=== PATIENT | female | born 1945 | race African-American/Black ===

== ENCOUNTER 2023-01-08 19:17 | Emergency (ER) | payer MEDICARE, MEDICAID ==
[~2023-01-08] VITALS: Ht 160 cm; Wt 112.0 kg
[~2023-01-08 19:17] MED LIST: CELEBREX200 MG OR; CEPHALEXIN500 MG OR; LORTAB5 OR; NO MEDS; ULTRAM50 M1 PO
[2023-01-08 19:38] VITALS: BP 143/64
[2023-01-08 20:09] LABS: BASO% 0.2 % (0-3); EOS% 0.1 % (0-8); HEMATOCRIT 41.8 % (37.0-47.0); HEMOGLOBIN 13.7 g/dl (12.0-16.0); IMMATURE GRANULOCYTES 0.3 % (0.0-5.0); LYMPH% 21.9 % (15-41); MEAN CELL VOLUME 91.1 fL CALC (80.0-100.0); MEAN CORPUSCULAR HGB 29.8 pG CALC (26.0-32.0); MEAN CORPUSCULAR HGB CONC 32.8 g/dL CAL (32.0-36.0); MONO% 12.4 % (2-13); NEUT# 6.91 thou/uL (2.00-7.15); NEUT% 65.1 % (42-76); RED BLOOD COUNT 4.59 mill/uL (4.20-5.60); RED CELL DISTRI WIDTH 12.8 % (11.5-15.5)
[2023-01-08 20:29] LABS: ALBUMIN 4.1 g/dL (3.2-5.0); CREATININE 1.2 mg/dL (0.5-1.0); POTASSIUM 3.7 mmol/l (3.5-5.1); TOTAL PROTEIN 7.7 g/dL (6.3-8.2)
[2023-01-08 20:32] LABS: BILIRUBIN, TOTAL 1.2 mg/dL (0.02-1.3)
[2023-01-08 22:44] LABS: URINE BILIRUBIN - DIPSTICK Negative (NEGATIVE); URINE BLOOD DIPSTICK Small (NEGATIVE); URINE GLUCOSE - DIPSTICK Negative (NEGATIVE); URINE KETONE Trace mg/dL (NEGATIVE); URINE NITRITE - DIPSTICK Negative (Negative); URINE PROTEIN - DIPSTICK Negative (NEG-TRACE); URINE SPECIFIC GRAVITY 1.025
[2023-01-08 22:55] LABS: URINE COLOR Yellow; URINE LEUK ESTERASE Small (NEGATIVE)
[2023-01-08 23:03] LABS: URINE SQUAMOUS EPITHELIAL CELL FEW EPI/hpf (0-FEW)
[2023-01-08] MEDS ORDERED: CEPHALEXIN500 MG PO (23:55)
[2023-01-08] MEDS ORDERED: PAXLOVID PO (23:55)
[2023-01-09 01:00] VITALS: BP 148/115
== END 2023-01-09 01:00 | disposition home or self-care (01) ==
LOC: ED 19:17
PROVIDERS: Emergency Medicine
DX: U07.1 COVID-19 (principal); R05.9 Cough, unspecified; R50.9 Fever, unspecified; R52 Pain, unspecified; N39.0 Urinary tract infection, site not specified